=== PATIENT | female | born 1960 | race Caucasian/White ===

== ENCOUNTER → 2020-01-12 16:49 | Outpatient (BNVA) | payer OTHER, SELFPAY | PROVIDERS: Family Provider Nurse Practitioner; PCP Nurse Practitioner; Visit Provider Nurse Practitioner | DX: Z12.4 Encounter for screening for malignant neoplasm of cervix (principal); Z12.39 Encounter for other screening for malignant neoplasm of breast; F41.9 Anxiety disorder, unspecified; I10 Essential (primary) hypertension | CPT/HCPCS: 88175 ==

== ENCOUNTER → 2020-03-13 16:38 | Outpatient (BNVA) | payer OTHER, SELFPAY | PROVIDERS: Family Provider Nurse Practitioner; PCP Nurse Practitioner; Visit Provider Nurse Practitioner | DX: F41.9 Anxiety disorder, unspecified (principal); I10 Essential (primary) hypertension; R22.1 Localized swelling, mass and lump, neck | CPT/HCPCS: 80053; 80061; 84443; 85025 ==

== ENCOUNTER 2020-04-04 14:45 | Outpatient (CLI) | payer OTHER, SELFPAY ==
--- NOTE | 2020-04-04 15:00 | US_ITS ---
WS: [id number] THYROID ULTRASOUND (TI-RADS CRITERIA) History: Anterior LEFT neck mass.. Technique: Ultrasound examination of the thyroid and adjacent soft tissues is performed. FINDINGS: Right lobe: 5.7 cm x 1.8 cm x 1.7 cm. Volume: 9.1 cm3. Left lobe: 6.4 cm x 2.0 cm x 2.4 cm. Volume: 16.4 cm3. Mildly enlarged thyroid. Isthmus: 0.4 cm. Estimated total number of nodules greater than or equal to 1 cm: LEFT: 1. Number of spongiform nodules greater than or equal to 2 cm not described below (TR1): 0 Number of mixed cystic and solid nodules greater than or equal to 1.5 cm not described below (TR2): 1 NODULE: 1 Size: 2.4 x 1.6 x 2.4 cm. Location: Inferior LEFT. Composition: Mixed cystic and solid (1) Echogenicity: Isoechoic (1) Shape: Not taller than wide (0) Margins: Smooth (0) Echogenic foci: Macrocalcifications (1) ACR TI-RADS total points: 3 ACR TI-RADS risk category: TR3 US/US thyroid 83040 Impression: TR 3; follow-up recommended LEFT inferior thyroid nodule. Recommendation:Follow up ultrasound in 1, 3 and 5 years. If thyroid nodule(s) change on follow-up examinations the recommendations will be altered as necessary.
== END 2020-04-04 14:46 | disposition home or self-care (01) ==
PROVIDERS: PCP Nurse Practitioner; Visit Provider Nurse Practitioner
DX: R22.1 Localized swelling, mass and lump, neck (principal)
CPT/HCPCS: 76536

== ENCOUNTER → 2020-04-09 16:14 | Outpatient (BNVA) | payer OTHER, SELFPAY | PROVIDERS: PCP Nurse Practitioner; Visit Provider Nurse Practitioner | DX: E87.6 Hypokalemia (principal) | CPT/HCPCS: 84132 ==

== ENCOUNTER 2020-05-22 15:54 | Outpatient (CLI) | payer OTHER, SELFPAY ==
--- NOTE | 2020-05-22 16:55 | ECG_ITS ---
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[id number] Requested By: Yuri Swenson Order Number: [id number] Reading MD: GRACIA CROSS Measurements Intervals Lewis Rate: 65 P: 72 MN: 146 QRS: -13 QRSD: 89 T: 45 QT: 391 QTc: 408 Interpretive Statements SINUS RHYTHM POSSIBLE LEFT ATRIAL ENLARGEMENT [-0.1mV P WAVE IN V1/V2] LOW QRS VOLTAGE IN EXTREMITY LEADS [QRS DEFLECTION < 0.5 mV IN LIMB LEADS] No previous ECG available for comparison Electronically Signed On 05-22-2020 19:59:14 TALENT BUYER by GRACIA CROSS [id number]
[2020-05-22 17:18] LABS: Basophils # 0.1 10^3/uL (0.0-0.1); Basophils % 1.3 %; Eosinophils # 0.1 10^3/uL (0.0-0.8); Eosinophils % 2.3 %; Hematocrit 41.8 % (37.0-47.0); Hemoglobin 13.7 g/dL (11.5-15.3); Lymphocytes # 2.4 10^3/uL (0.8-4.8); Lymphocytes % 45.2 %; Mean Corpuscular HGB Conc 32.8 g/dL (30.0-36.0); Mean Corpuscular Hemoglobin 32.5 pg (28.0-34.0); Mean Corpuscular Volume 99.3 fL (81-99); Mean Platelet Volume 10.5 fL (7.4-10.4); Monocytes # 0.3 10^3/uL (0.2-0.9); Monocytes % 6.2 %; Neutrophils # 2.34 10^3/uL (1.8-7.7); Nucleated Red Blood Cells % 0 %; Platelet Count 268 10^3/cmm (130-400); Red Blood Count 4.21 10^6/uL (4.1-5.3); Red Cell Distribution Width 13.6 % (12.1-15.1); White Blood Count 5.2 10^3/uL (4.0-10.0)
[2020-05-22 17:43] LABS: Anion Gap 12.8 (5-19); Blood Urea Nitrogen 16 mg/dL (6-20); Calcium 9.4 mg/dL (8.5-10.5); Carbon Dioxide 26 mmol/L (22-29); Chloride 101 mmol/L (98-107); Glomerular Filtration Rate 85.6 mL/min (90-130); Glucose 93 mg/dL (65-115); Osmolality Calculated 283 mOsm/kg (285-295); Potassium 3.8 mmol/L (3.5-5.1); Sodium 136 mmol/L (136-145)
== END 2020-05-22 15:55 | disposition home or self-care (01) ==
PROVIDERS: PCP Nurse Practitioner; Visit Provider Specialist
DX: Z01.810 Encounter for preprocedural cardiovascular examination (principal)
CPT/HCPCS: 36415; 80048; 85025; 93005

== ENCOUNTER → 2020-05-24 15:51 | Outpatient (BNVA) | payer OTHER, SELFPAY | PROVIDERS: PCP Nurse Practitioner; Visit Provider Specialist | DX: Z01.818 Encounter for other preprocedural examination (principal) | CPT/HCPCS: 87635 ==

== ENCOUNTER 2020-05-29 12:03 | Observation (INO) | payer OTHER, SELFPAY ==
[2020-05-28 10:35] VITALS: BMI 22.4
[2020-05-29] VITALS (38 sets, daily range): BP systolic 77–138; BP diastolic 46–86; PULSE 59–108; RESP 15–29; TEMP 36.3–36.7; O2SAT 94–100
[2020-05-29] MEDS: sodium chloride 0.9% 1,000 ML 30 ML IV (06:14)
--- NOTE | 2020-05-29 06:41 | ANES.PREANE2 ---
Pre-Anesthetic Assessment Pre-Anesthetic Assessment: Height/Weight: Height 1.7 m Weight 64.864 kg Temp Pulse Resp BP Pulse Ox 97.5 F L 74 18 122/81 96 05/29/20 05:59 05/29/20 05:59 05/29/20 05:59 05/29/20 05:59 05/29/20 05:59 Proposed Procedure: Operation Date: 05/29/20 07:00 Proposed Procedures p Total Thyroidectomy 21382 E04.1(Not Applicable) - Yuri Jernigan MD Was Beta Gabi taken within 24 hours: N/A Last intake: Intake Last Liquid Date 05/28/20 Last Liquid Time 22:00 Last Solid Date 05/29/20 Last Solid Time 17:00 Social: Social History: Tobacco and No alcohol Exam: Pre-Anes Outpt Exam: alert, oriented x 3 and regular rate & rhythm Additional Exam Findings (including area of procedure): BBS decreased, rhonchi Airway: Submandibular: WNL Cervical ROM: WNL MP: 2 Dentition: False Pulmonary: Pulmonary: COPD CV/HEM: CV/HEM: HTN Metabolic: Metabolic: Thyroid Neuropsych: Neuropsych: Anxiety Anesthetic Plan: ASA status: 3 Anesthesia: General Risk of > 500 ml blood loss (7ml/kg in children): No Meds/Allergies Current Medications: Current Medications Generic Name Dose Route Start Last Admin Trade Name Freq PRN Reason Stop Dose Admin Sodium Chloride 1,000 mls @ 30 ml s/hr 05/29/20 06:00 05/29/20 06:14 Sodium Chloride 0.9% IV 05/30/20 05:59 30 mls/hr .Q24H SHEREEN Administration PFSH Anesthesia PFSH: Medical History Anxiety Essential hypertension Surgical History History of arthroscopy of right knee History of cholecystectomy History of ectopic Right Hx of LASIK Family History Other Cancer Diabetes Hypertension Social History Smoking and tobacco status: current every day smoker cigarettes Packs smoked per day: 0.5 Second hand smoke exposure: Yes Smoking risk assessment/counseling performed?: Yes Alcohol intake: never Desire information about alcohol rehabilitation?: No Counseling given: No Desire information about substance/drug rehabilitation?: No Counseling given: No Caregiver/support person: No Lives independently: Yes Household members: other Housing: House Marital status: History of recent travel: No Current gender identity: Female Data Anesthesia Cardiac Studies: No Data to Display
--- NOTE | 2020-05-29 06:52 | W.PM.OPSUD ---
Surgery/Procedure H&P Update DATE OF PROCEDURE: May 29, 2020 DATE H&P PERFORMED: 05/07/20 H&P UPDATE INFORMATION: I have reviewed H&P completed within last 30 days, I have examined patient prior to procedure and No changes to prior documentation PREOP DIAGNOSIS: Symptomatic left thyroid nodule PLANNED PROCEDURE: Operation Date: 05/29/20 07:00 Proposed Procedures p Left Juan Thyroidectomy 84111 E04.1(Not Applicable) - Yuri Jernigan MD
[2020-05-29] MEDS: ceFAZolin 1,000 mg SDV 1000 MG IRRIGATION (07:35)
[2020-05-29] MEDS: EPINEPHrine 1 mg/mL INJ 2 MG XX (07:35)
[2020-05-29] MEDS: fluorescein 1 mg Strip XX (07:35)
--- NOTE | 2020-05-29 07:41 | SUR.OPER ---
0708 - Pt's family Abbey notified of surgery start via her cell phone.
[2020-05-29] MEDS: thrombin 5,000 unit SDV 5000 UNIT XX (08:27)
[2020-05-29] MEDS: EPINEPHrine 1 mg/mL INJ XX (08:30)
[2020-05-29] MEDS: neomycin-poly-bacitracin oint 28 gm 1 APPLIC TOPICAL (08:59)
--- NOTE | 2020-05-29 09:11 | SUR.OPER ---
0905 - Abbey updated on surgery progress and pt status
--- NOTE | 2020-05-29 09:22 | P.OP_ITS ---
Operative Report Date of procedure: May 29, 2020 Pre-op Diagnosis: Symptomatic left thyroid nodule Post-op diagnosis: same Post-op Findings: Large left inferior pole thyroid nodule Left recurrent laryngeal nerve identified and intact anatomically and electrically Upper and lower left parathyroid glands identified and preserved in place O/W normal left anterior neck/thyroid bed exam Procedure Done: Left hemithyroidectomy Implants: None Specimens removed/disposition: Left thyroid lobe Pathology: Left thyroid lobe Surgeon: Yuri Jernigan Management Trainer: Symone Donnelly Management Trainer: Gretchen Jones Anesthesia: General Estimated blood loss (mL): 10 IV fluids (mL): 1,600 Urine output (mL): 100 Complications: None Findings: Large left inferior pole nodule Left recurrent laryngeal nerve identified and preserved intact visually and electrically Left upper and lower parathyroid glands identified and preserved in place O/W normal left anterior neck exam Condition: stable Disposition: PACU Brief History: 60 yo wf with a symptomatic and unsightly left thyroid nodule who desires surgical removal of the left thyroid lobe. Procedure: The patient was identified in the preoperative holding area and was taken to the operating room where she was placed on the operating table in the supine position. Anesthesia was obtained with general endotracheal anesthesia after placing the Nirvana nerve monitoring electrode on the endotracheal tube and ensuring proper placement. A horizontal incision was marked out 2 fingerbreadths above the sternal notch over the thyroid between the heads of the sternocleidomastoid muscles and was injected with local anesthesia. The patient was then prepped and draped in the usual sterile fashion. At this point the incision was made with a # 15 blade and was carried down through the subc utaneous tissues with electrocautery and the harmonic scalpel. The trachea and midline as well as left thyroid lobe were then exposed with blunt dissection. At this point using 5 power loupe magnification a circumferential dissection was carried out around the left thyroid lobe. The middle thyroid vein was identified clipped and divided, and, as the left thyroid lobe was rotated medially, the inferior pole vessels were individually dissected free, clipped and divided on the capsule of the thyroid. The left inferior pole parathyroid and thyro thymic horn were rotated inferiorly away from the thyroid as the dissection proceeded into the tracheoesophageal groove. The recurrent laryngeal nerve was identified electrically and visually with the dissecting hemostat and was traced superiorly to its entry point into the larynx. At this point, the upper pole vessels were individually dissected free, clipped and divided. At this point the thyroid was found to be broadly attached to the airway at David's ligament. While protecting the recurrent laryngeal nerve and keeping it in view at all times, David's ligament was dissected off of the airway with the microbipolar forceps. The thyroid isthmus was then divided with the harmonic scalpel and the thyroid bed was then irrigated with a copious amount of normal saline. The wound was inspected for hemostasis which was found to be adequate. At this point the recurrent laryngeal nerve was identified and stimulated electrically and was found to be intact. At this point, Gelfoam soaked in thrombin and Decadron was placed over the left recurrent laryngeal nerve and [place] was placed over portions of the wound. A small round drain was placed in the wound and the wound was then closed with interrupted 4-0 Monocryl sutures subcu and a running subcuticular 5-0 Monocryl. The skin was closed with Dermabond and Steri-Strips. At this point, the procedure was terminated and control of the patient was returned to anesthesia where she underwent an uneventful reversal of anesthesia and extubation and was taken to the recovery room in stable condition. There were no operative or anesthetic complications
--- NOTE | 2020-05-29 09:31 | SUR.PHASEI ---
PT NOW ON RA TIRIAL, PT ASKED FOR ICE CHIP VSS GOOD RESP EFFORT NOTED, NECK INCISION WELL APPROXIMATED WITH STERI STRIPS ONLY DRAIN IN PLACE AND COMPRESSED, NO DRAINAGE NOTED HOB AT 30 DEGREES.
[2020-05-29] MEDS: fentaNYL 50 mcg/mL INJ 2mL IVP (09:43)
[2020-05-29] MEDS: ondansetron 2 mg/ML SDV 2 mL 4 MG IVP (09:48)
--- NOTE | 2020-05-29 09:54 | SUR.PHASEI ---
PT C/O OF PAIN AND NAUSEA EARLIER SEE MEDS GIVEN, PT BP NOW LOWER, BUT PT AWAKES TO VOICE, NODS HEAD YES TO QUESTION IS PAIN BETTER NOW. IV NOW AT W/O RATE , WILL CONTINUE TO MONITOR BP CLOSELY.
--- NOTE | 2020-05-29 10:16 | SUR.PHASEI ---
PT OUT OF PHASE 1 NOW AND REMAINS IN HOLDING UNTIL FLOOR BED IS AVAILABLE. PT SLEEPS IF NOT DISTURBED BUT AWAKES EASILY, PT ALERT AND RESPONDS APPROPRIATELY, GOOD RESP NOTED DRESSING D/I NO HEMATOMA NOTED , NO DRAINAGE NOTED TO COMPRESSED MARTÍNEZ DRAIN.
--- NOTE | 2020-05-29 10:25 | ANE.PACU2 ---
Inpatient post-anesthesia follow up: Airway intact: Yes Vital signs: Temperature 97.4 F Pulse Rate 66 Respiratory Rate 15 Blood Pressure 98/65 Pulse Oximetry 97 Oxygen Delivery Me thod Nasal Cannula Oxygen Flow Rate 2 Fraction of Inspir ed Oxygen Hydration adequate: Yes Nausea and vomiting: No Pain level: 2 Mental status: Baseline
--- NOTE | 2020-05-29 10:28 | SUR.PHASEI ---
PT NOW IN OPS ROOM 12 FOR HOLDING , WAITING FOR FLOOR BED CALL LIGHT WITHIN REACH BED LOWERED AND LOCKED, SIDERAILS UP X 2 , PT ALERT AND ORIENTED , SLEEPS IF NOT DISTURBED.
[2020-05-29] MEDS: sodium chloride 0.9% 1,000 ML 100 ML IV (10:54)
[2020-05-29] MEDS: HYDROcodone-acetaminophen 5-325 mg Tablet 1 TAB PO ×3 (11:14→22:51)
--- NOTE | 2020-05-29 11:45 | SUR.PHASEI ---
PT ATE JELLO AND PUDDING , SIPS ON SPRITE, PT'S DAUGHTER AT BEDSIDE PT WITH NO COMPLAINT AT THIS TIME. PT AND DAUGHTER UPDATED PT TO GO TO ICU 4 WHEN BED IS OPEN. NO PROBLEMS VOICED.
[2020-05-29] MEDS: famotidine 20 mg/2 mL INJ IVP ×2 (12:59→22:50)
[2020-05-29] MEDS: lactated ringers 1,000 ML 100 ML IV ×2 (12:59→22:51)
[2020-05-29] MEDS: docusate sodium 100 mg Capsule PO (17:04)
--- NOTE | 2020-05-29 18:13 | PC.NURSE ---
SHIFT SUMMARY PATIENT HAS DONE WELL AFTER SURGERY TODAY. PATIENT HAD 18ML OF OUTPUT IN THE MARTÍNEZ DRAIN. AROUND 900ML OF URINE OUTPUT. AMBULATING WELL. VITALS STABLE. PAIN WELL CONTROLLED. GOOD PO INTAKE. NO COMPLAINTS AT THIS TIME.
--- NOTE | 2020-05-29 19:13 | PM.PN ---
Subjective Subjective: Interval history: 60 yo wf who is night of surgery s/p left hemithyroidectomy who reports that she is doing well. She reports that she is breathing well, eating well, and that her voice is unchanged from preop. The patient is o/w without c/o. Vitals/I&O/Wt Last Vital Signs Temp 98.1 F 05/29/20 18:00 Pulse 75 05/29/20 18:00 Resp 18 05/29/20 18:00 BP 138/83 05/29/20 18:00 Pulse Ox 98 05/29/20 18:00 05/29/20 05/29/20 05/29/20 06:59 14:59 22:59 Intake Total 1850 / 1850 360 / 2210 Output Total 1010 / 1010 418 / 1428 Balance 840 / 840 -58 / 782 Weight last 48 hrs Weight 64.864 kg Physical Exam Const: COMMON NORMALS: no acute distress, patient oriented x3 and alert ORIENTATION/CONSCIOUSNESS: Yes oriented to person, Yes oriented to place and Yes oriented to time HENMT: COMMON NORMALS: normocephalic, hearing grossly normal bilaterally, external ears normal and Normal external nose present HEAD & SCALP: normocephalic FACE & SINUS: normal facial exam NOSE: Normal external nose present EXTERNAL EAR: Yes external ears normal MOUTH: Normal oral and palatal mucosa present and tongue normal Eye: COMMON NORMALS: Equal, round and reactive pupils present and conjunctivae normal CONJUNCTIVA: Yes conjunctivae normal PUPIL: Yes Equal, round and reactive pupils present Neck/C-Spine: COMMON NORMALS: full ROM and no lymphadenopathy THYROID: other (The thyroidectomy incision is intact and without erythema or swelling.) Resp: COMMON NORMALS: normal respiratory effort and clear to auscultation bilaterally AUSCULTATION: clear to auscultation bilaterally Cardio: COMMON NORMALS: regular rate, regular rhythm, S2 normal heart sound present, No murmurs present (Cardio) and No rub (Cardio) RATE: regular rate RHYTHM: regular rhythm HEART SOUNDS: S2 normal heart sound present GI: COMMON NORMALS: Normal to inspection, nondistended, normoactive bowel sounds present Extremity: COMMON NORMALS: normal to inspection, full ROM and capillary refill normal Neuro: COMMON NORMALS: patient oriented x3 and CN's II-XII intact bilaterally SENSORIUM/ORIENTATION: Yes alert, Yes oriented to person, Yes oriented to place and Yes oriented to time CRANIAL NERVES: Yes other (The patient's voice is unchanged from preop. ) Skin: COMMON NORMALS: no rashes or lesions noted GENERAL SKIN EXAM: no rashes or lesions noted Urinary Catheter Management^: Bowser: Cath Placed During This Visit: yes, but has since been removed by the nurse Urinary Catheter Date of Insertion: 05/29/20 Urinary Catheter Time of Insertion: 07:15 Date Urinary Catheter Removed: 05/29/20 Time Urinary Catheter Discontinued: 09:13 A&P Additional A&P Information Impression: 60 yo wf who is night of surgery s/p left hemithyroidectomy doing well Plan: - Overnight observation - Regular diet - Closed suction drain - SCDs - ICU observation overnight - Anticipate discharge in the am if the patient continues to do well Attestations Medical Necessity Statement*: The patient requires overnight observation of her airway Coding Level of Care Code Acute Macroeconomics Professor for Dalton Chaves
[2020-05-29] MEDS: diphenhydrAMINE 50 mg/mL SDV 1mL 12.5 MG IVP (21:05)
[2020-05-30] VITALS (11 sets, daily range): BP systolic 105–148; BP diastolic 47–88; PULSE 63–89; RESP 15–25; TEMP 36.2; O2SAT 94–99
--- NOTE | 2020-05-30 05:28 | P.PN_ITS ---
Subjective Subjective: Interval history: 60 yo wf who is POD #1 s/p left hemithyroidectomy for a symptomatic left thyroid nodule. The patient reports that she is doing well. She is eating well and her voice is unchanged from preop. The patient is o/w without c/o and reports that she did well overnight. Medications: Reviewed: Yes Vitals/I&O/Wt Last Vital Signs Temp 97.1 F L 05/30/20 04:00 Pulse 89 05/30/20 02:00 Resp 25 H 05/30/20 02:00 BP 118/64 05/30/20 02:00 Pulse Ox 96 05/30/20 02:00 05/29/20 05/29/20 05/30/20 14:59 22:59 06:59 Intake Total 1850 / 1850 1546.667 / 3396.667 200 / 3596.667 Output Total 1010 / 1010 1068 / 2078 250 / 2328 Balance 840 / 840 478.667 / 1318.667 -50 / 1268.667 Weight last 48 hrs Weight 64.864 kg Physical Exam Const: COMMON NORMALS: no acute distress and patient oriented x3 NUTRITIONAL APPEARANCE: thin HENMT: COMMON NORMALS: normocephalic, atraumatic and Normal external nose present HEAD & SCALP: normocephalic and atraumatic FACE & SINUS: normal facial exam NOSE: Normal external nose present MOUTH: Normal oral and palatal mucosa present, lip normal and tongue normal Eye: COMMON NORMALS: Equal, round and reactive pupils present, EOMs intact bilaterally and conjunctivae normal CONJUNCTIVA: Yes conjunctivae normal PUPIL: Yes Equal, round and reactive pupils present Neck/C-Spine: COMMON NORMALS: full ROM and no lymphadenopathy GENERAL: Yes other (The thyroidectomy incision is intact, and without swelling or erythema.) Resp: COMMON NORMALS: normal respiratory effort and clear to auscultation bilaterally AUSCULTATION: clear to auscultation bilaterally Cardio: COMMON NORMALS: regular rate, regular rhythm, No gallops present (Cardio), No murmurs present (Cardio) and No rub (Cardio) RATE: regular rate RHYTHM: regular rhythm GI: COMMON NORMALS: Normal to inspection, nondistended, normoactive bowel sounds present Extremity: COMMON NORMALS: normal to inspection and capillary refill normal Neuro: COMMON NORMALS: patient oriented x3 and CN's II-XII intact bilaterally Skin: COMMON NORMALS: no rashes or lesions noted GENERAL SKIN EXAM: no rashes or lesions noted Urinary Catheter Management^: Bowser: Cath Placed During This Visit: yes, but has since been removed by the nurse Urinary Catheter Date of Insertion: 05/29/20 Urinary Catheter Time of Insertion: 07:15 Date Urinary Catheter Removed: 05/29/20 Time Urinary Catheter Discontinued: 09:13 Data Other data: Path: pending A&P Additional A&P Information Impression: 60 yo wf who is POD #1 s/p left hemithyroidectomy doing well Plan: - D/C to home - Continue closed suction drainage - F/U in Dr. Jernigan's office in 48 hours - [place] () tabs: take 1-2 tabs po Q5 hours prn pain, #25, NR - Notify Dr. Jernigan for any problems Attestations Medical Necessity Statement*: The patient required overnight observation of her airway. Coding Level of Care Code Acute Plater Printed Circuit Board Panels for Dalton Chaves
[2020-05-30] MEDS: potassium chloride ER 20 mEq Tablet PO (08:00)
[2020-05-30] MEDS: docusate sodium 100 mg Capsule PO (08:00)
[2020-05-30] MEDS: venlafaxine ER (24HR) 75 mg Capsule PO (08:01)
[2020-05-30] MEDS: losartan 50 mg Tablet 100 MG PO (08:01)
--- NOTE | 2020-05-30 08:40 | PC.NURSE ---
discharge Patient was discharged at 0830 via wheelchair with daughter. Discharge orders in hand
--- NOTE | 2020-05-30 12:06 | PC.RESP ---
Smoking Cessation information sent to patient.
== END 2020-05-30 08:30 | disposition home or self-care (01) ==
LOC: ICU 12:03
PROVIDERS: Admitting Provider Specialist; PCP Nurse Practitioner; Visit Provider Specialist
PROC: (CPT 60220; principal; 2020-05-29 07:00)
DX: E04.1 Nontoxic single thyroid nodule (principal); J44.9 Chronic obstructive pulmonary disease, unspecified; I10 Essential (primary) hypertension; F41.9 Anxiety disorder, unspecified
CPT/HCPCS: 60220; 12345; 51702; 88307; 96361; 96365; 96374; 96375; G0378; J0171; J0330; J0690; J1100; J1200; J2250; J2405; J2704; J3010; J3490; J7030

== ENCOUNTER → 2020-10-19 11:33 | Outpatient (BNVA) | payer OTHER, SELFPAY | PROVIDERS: PCP Nurse Practitioner; Visit Provider Nurse Practitioner | DX: I10 Essential (primary) hypertension (principal); F41.9 Anxiety disorder, unspecified | CPT/HCPCS: 80053; 80061; 84439; 84443; 84481 ==

== ENCOUNTER → 2021-03-28 09:11 | Outpatient (BNVA) | payer OTHER, SELFPAY | PROVIDERS: PCP Nurse Practitioner; Visit Provider Nurse Practitioner | DX: I10 Essential (primary) hypertension (principal) | CPT/HCPCS: 80053; 80061; 84443 ==

== ENCOUNTER → 2021-11-01 09:55 | Outpatient (BNVA) | payer OTHER, SELFPAY | PROVIDERS: PCP Nurse Practitioner; Visit Provider Nurse Practitioner Family | DX: F41.9 Anxiety disorder, unspecified (principal); I10 Essential (primary) hypertension; F17.210 Nicotine dependence, cigarettes, uncomplicated; E04.1 Nontoxic single thyroid nodule | CPT/HCPCS: 80053; 80061; 84443; 85025 ==